=== PATIENT | male | born 1975 | race Caucasian/White ===

== ENCOUNTER 2018-12-20 13:43 | Emergency (ER) | payer OTHER ==
[~2018-12-20] VITALS: Ht 175.3 cm; Wt 86.7 kg
[~2018-12-20 13:43] MED LIST: MECL12.574 PO; ONDA4TAB14 PO
[2018-12-20 14:08] VITALS: BP 148/100; PULSE 78; RESP 18; Ht 175.3 cm; Wt 86.7 kg
== END 2018-12-20 14:45 | disposition home or self-care (01) ==
LOC: FTE 13:43
DX: E11.649 Type 2 diabetes mellitus with hypoglycemia without coma (principal); Z85.841 Personal history of malignant neoplasm of brain
CPT/HCPCS: 82962; Z7502; 99283